=== PATIENT | male | born 1990 | race Caucasian/White ===

== ENCOUNTER 2022-02-28 02:04 | Emergency (ER) | payer BC ==
[~2022-02-28] VITALS: Ht 175.3 cm; Wt 113.4 kg
[2022-02-28 02:47] VITALS: BP 136/87
== END 2022-02-28 02:47 | disposition home or self-care (01) ==
LOC: FSED 02:20
DX: R00.2 Palpitations (principal); F41.9 Anxiety disorder, unspecified; F32.A Depression, unspecified
CPT/HCPCS: 93005; 99282